=== PATIENT | male | born 1980 | race African-American/Black ===

== ENCOUNTER 2022-05-11 09:30 | Emergency (ER) | payer MEDICAID ==
[~2022-05-11] VITALS: Ht 180.3 cm; Wt 69.0 kg
[2022-05-11] MEDS ORDERED: IBUPROFEN 600MG TABLET PO ONE (12:15)
[2022-05-11 12:38] VITALS: BP 135/83
[2022-05-11] MEDS ORDERED: IBUP-2028 PO (13:07)
== END 2022-05-11 13:36 | disposition home or self-care (01) ==
LOC: ER 09:30
DX: S63.693A Other sprain of left middle finger, initial encounter (principal); Y00.XXXA Assault by blunt object, initial encounter; Y93.89 Activity, other specified; Y92.89 Other specified places as the place of occurrence of the external cause
CPT/HCPCS: 73140; 99283